=== PATIENT | female | born 1955 | race Caucasian/White ===

== ENCOUNTER 2022-10-19 16:05 | Emergency (ER) | payer OTHER, SELFPAY ==
[2022-10-19 16:09] VITALS: BP 111/55; PULSE 60; RESP 18; TEMP 36.8; O2SAT 98; BMI 20.1
[2022-10-19 16:55] LABS: Appearance Urine UA SL CLOUDY; Color Urine UA ORANGE
[2022-10-19 17:01] LABS: Bacteria Urine Few (2-10); Culture Indicated Urine Specimen Cultured; RBC Urine 1-5/HPF (0-5/HPF); Squamous Epithelial Cell Urine 0-1 /HPF (0-5/HPF); WBC Urine 0-1/HPF (0-5/HPF)
--- NOTE | 2022-10-19 17:45 | ED.GENADULT ---
HPI - General Adult General Chief complaint: Urogenital-Female Stated complaint: UTI Time Seen by Provider: 10/19/22 17:38 Source: patient Mode of arrival: Ambulatory History of Present Illness HPI narrative: 67-year-old female who states she does get frequent urinary tract infections. She is visiting the local area from [place]. Stated that yesterday she started to have quite a bit of dysuria and frequency. She bought Pyridium [id number]. Has been taking it however today things seemed to get much worse. She is having some back pain. No fevers. No vomiting. Her last antibiotic was Macrobid and did seem to help her symptoms. Related Data Previous Rx's Medication Instructions Recorded nitrofurantoin macrocrystal 100 mg 100 mg PO BID 5 days #10 caps 10/19/22 capsule Allergies Allergy/AdvReac Type Severity Reaction Status Date / Time No Known Drug Allergies Allergy Verified 10/19/22 16:09 Review of Systems Constitutional Constitutional: Reports system reviewed and no additional complaints, except as documented Gastrointestinal Gastrointestinal: Reports system reviewed and no additional complaints, except as documented Genitourinary Genitourinary: Reports system reviewed and no additional complaints, except as documented Musculoskeletal Musculoskeletal: Reports system reviewed and no additional complaints, except as documented Patient History Social History Smoking Status: Never smoker Smoking Status: Never smoker alcohol intake frequency: a few times a month Substance Use Type: does not use Exam Initial Vital Signs Initial Vital Signs: Vital Signs Temperature 98.2 F 10/19/22 16:09 Pulse Rate 60 10/19/22 16:09 Respiratory Rate 18 10/19/22 16:09 Blood Pressure 111/55 L 10/19/22 16:09 Pulse Oximetry 98 10/19/22 16:09 Oxygen Delivery Method Room Air 10/19/22 16:09 Const General: cooperative and comfortable Resp Effort & Inspection: normal respiratory effort Cardio Rate: regular rate Neuro General: patient alert and patient awake Course Orders Ordered: ED Orders 10/19/22 16:15 Urinalysis and Microscopic Stat Urine Culture Stat Vital Signs Vital signs: Vital Signs - 8 hr 10/19/22 16:09 Temperature 98.2 F Pulse Rate 60 Respiratory Rate 18 Blood Pressure 111/55 L Pulse Oximetry 98 Oxygen Delivery Method Room Air Medical Decision Making Lab Data Lab results reviewed: Yes I reviewed the patient's lab results. Labs: Lab Results 10/19/22 Range/Units 16:15 Urine Color [place] Urine Appearance Sl cloudy Urine pH TNP Ur Specific [place] TNP Urine Protein TNP Urine Glucose (UA) TNP Urine Ketones TNP Urine Occult Blood TNP Urine Nitrate TNP Urine Bilirubin TNP Urine Urobilinogen TNP Ur Leukocyte Esterase TNP Urine RBC 1-5/hpf (0-5/HPF) Urine WBC 0-1/hpf (0-5/HPF) Ur Squamous Epith Cells 0-1 /hpf (0-5/HPF) Urine Bacteria Few (2-10) H (None) Ur Culture Indicated? Specimen cultured MDM Narrative Medical decision making narrative: Her urinalysis is somewhat obscured because of the Pyridium that she is taken however her symptoms and her urinalysis that does include bacteria would be consistent with a urinary tract infection. A urine culture was obtained. She is tolerating oral intake. Low suspicion for pyelonephritis. No indication for admission to the hospital. Will discharge home with a prescription for antibiotics. She was given return precautions. She expressed understanding and agreement. Discharge Plan Departure Patient Disposition: Home Clinical Impression: Urinary tract infection Instructions: DI for Urinary Tract Infection (UTI) Activity Restrictions/Additional Instructions: I do recommend that you take the antibiotics as directed. Contact your primary doctor for follow-up. Return to the emergency department for new or worsening symptoms. Prescriptions: New nitrofurantoin macrocrystal 100 mg capsule 100 mg PO BID 5 Days Qty: 10 0RF Rx Instructions: must administer with a meal/food Stand Alone Forms: Patient Portal/API
[2022-10-19 18:00] VITALS: BP 122/57; PULSE 60; RESP 16; O2SAT 100
== END 2022-10-19 18:01 | disposition home or self-care (01) ==
PROVIDERS: Emergency Provider Emergency Medicine
DX: N39.0 Urinary tract infection, site not specified (principal)
CPT/HCPCS: 81001; 87077; 87086; 87186; 99281; 99282